=== PATIENT | male | born 1955 | race Caucasian/White ===

== ENCOUNTER 2018-04-29 06:28 | Day surgery (SDC) | payer OTHER ==
[2018-04-28 11:26] VITALS: BMI 27.3
[2018-04-29 07:25] LABS: BASO % 0.7 % (0-2.0); EOS % 1.6 % (0-4.5); HEMOGLOBIN 14.5 GM/dl (11.7-16.9); LYMPH % 35.6 % (8-40); MCH 32.2 pg (25.7-33.7); MCHC 32.9 g/dl (32.0-35.9); MEAN CELL VOLUME 97.9 fl (80-96); MEAN PLT VOLUME 9.1 fl (7.5-11.1); MONO % 10.9 % (3.8-10.2); NEUT % 51.2 % (42.8-82.8); PLATELET COUNT 181 K/MM3 (134-434); RDW 13.3 % (11.9-15.9); WHITE BLOOD COUNT 4.6 K/mm3 (4.0-10.8)
[2018-04-29 07:48] LABS: ALBUMIN 3.9 g/dl (3.5-5.0); ALK PHOS 49 U/L (32-92); ANION GAP 5 MMOL/L (8-16); BILIRUBIN,TOTAL 0.6 mg/dl (0.2-1.0); BLOOD UREA NITROGEN 20 mg/dl (7-18); CHLORIDE 105 mmol/L (98-107); CO2 28 mmol/L (22-28); GLUCOSE,RANDOM 100 mg/dl (74-106); MAGNESIUM 2.1 mg/dL (1.8-2.4); POTASSIUM 4.1 mmol/L (3.5-5.1); SGOT/AST 32 U/L (10-42); SGPT/ALT 32 U/L (10-40); SODIUM 138 mmol/L (136-145); TOT PROT 6.9 g/dl (6.4-8.3)
--- NOTE | 2018-04-29 07:53 | HP ---
CHIEF COMPLAINT: Major Depressive Disorder PCP: [facility] Primary Psychiatrist: Amos Yen Plains HISTORY OF PRESENT ILLNESS: 63 uear-old male with a PMH significant for HLD, BPH, and major depressive disorder. Patient began ECT in 2016. He presents today for ECT. Recent Events: * travel to [place] 2 months ago * no recent illness * no change in medications PAST MEDICAL HISTORY: Hyperlipidemia BPH Major Depressive Disorder PAST SURGICAL HISTORY: None Social History: Smoking: never Alcohol: occasional Drugs: no Allergies No Known Drug Allergies Allergy (Verified 04/29/18 07:13) HOME MEDICATIONS: Home Medications Medication Instructions Recorded Simvastatin 20 mg PO DAILY 04/28/18 Tamsulosin HCl [Flomax] 0.4 mg PO DAILY 04/28/18 Benztropine Mesylate [Cogentin -] 1 mg PO DAILY 04/29/18 Cariprazine HCl [Vraylar] 1.5 mg PO HS 04/29/18 Lamotrigine [Lamictal] 150 mg PO DAILY 04/29/18 REVIEW OF SYSTEMS CONSTITUTIONAL: Absent: fever, chills, diaphoresis, generalized weakness, malaise, loss of appetite, weight change HEENT: Absent: rhinorrhea, nasal congestion, throat pain, throat swelling, difficulty swallowing, mouth swelling, ear pain, eye pain, visual changes CARDIOVASCULAR: Absent: chest pain, syncope, palpitations, irregular heart rate, lightheadedness , peripheral edema RESPIRATORY: Absent: cough, shortness of breath, dyspnea with exertion, orthopnea, wheezing, stridor, hemoptysis GASTROINTESTINAL: Absent: abdominal pain, abdominal distension, nausea, vomiting, diarrhea, constipation, melena, hematochezia GENITOURINARY: Absent: dysuria, frequency, urgency, hesitancy, hematuria, flank pain, genital pain MUSCULOSKELETAL: Absent: myalgia, arthralgia, joint swelling, back pain, neck pain SKIN: Absent: rash, itching, pallor HEMATOLOGIC/IMMUNOLOGIC: Absent: easy bleeding, easy bruising, lymphadenopathy, frequent infections ENDOCRINE: Absent: unexplained weight gain, unexplained weight loss, heat intolerance, cold intolerance NEUROLOGIC: Absent: headache, focal weakness or paresthesias, dizziness, unsteady gait, seizure, mental status changes, bladder or bowel incontinence PHYSICAL EXAMINATION Vital Signs - 24 hr 04/29/18 04/29/18 06:52 07:10 Temperature 97.4 F L 97.4 F L Pulse Rate 55 L 55 L Respiratory 18 18 Rate Blood Pressure 158/83 158/83 O2 Sat by Pulse 100 100 Oximetry (%) GENERAL: Awake, alert, and fully oriented, in no acute distress. HEAD: Normal with no signs of trauma. EYES: Pupils equal, round and reactive to light, sclera anicteric, conjunctiva clear. LUNGS: Breath sounds equal, clear to auscultation bilaterally. No wheezes, and no crackles. No accessory muscle use. HEART: Regular rate and rhythm, normal S1 and S2 ABDOMEN: Soft, nontender, not distended MUSCULOSKELETAL: Normal range of motion at all joints. No bony deformities or tenderness. No CVA tenderness. UPPER EXTREMITIES: 2+ pulses, warm, well-perfused. No cyanosis. No clubbing. No peripheral edema. LOWER EXTREMITIES: 2+ pulses, warm, well-perfused. No calf tenderness. No peripheral edema. NEUROLOGICAL: Cranial nerves II-XII intact. Normal speech. Laboratory Results - last 24 hr 04/29/18 07:00 WBC 4.6 RBC 4.50 Hgb 14.5 Hct 44.0 MCV 97.9 H MCH 32.2 MCHC 32.9 RDW 13.3 Plt Count 181 MPV 9.1 Absolute Neuts (auto) 2.3 Neutrophils % 51.2 Lymphocytes % 35.6 Monocytes % 10.9 H Eosinophils % 1.6 Basophils % 0.7 ASSESSMENT/PLAN: 63 year-old male with a PMH significant for HLD and BPH. Presents today for ECT. Cardiac --no cardiac history --Revised Cardiac Risk Index for Pre-Operative Risk: 0 points, 0.4% risk of major cardiac event Pulmonary --no pulmonary history Neurological --no neurological or neurosurgical history; no history of trauma Anesthesia --no reported problems with anesthesia ECT is a low risk procedure. The relative benefits of the planned procedure outweigh the relative risks for this patient at this time. Visit type - Emergency Visit Emergency Visit: No - New Patient This patient is new to me today: Yes Date on this admission: 04/29/18 - Critical Care Critical Care patient: No
[2018-04-29] MEDS ORDERED: KETAMINE HCL 500 MG/10 ML VIAL ONE (08:13)
[2018-04-29 09:39] VITALS: TEMP 98.2
[2018-04-29 10:13] VITALS: BP 155/85; PULSE 61
--- NOTE | 2018-07-01 20:29 | EKG ---
Test Reason : Blood Pressure : / mmHG Vent. Rate : 055 BPM Atrial Rate : 055 BPM P-R Int : 158 ms QRS Dur : 096 ms QT Int : 424 ms P-R-T Axes : 018 010 017 degrees QTc Int : 405 ms SINUS BRADYCARDIA CANNOT RULE OUT ANTERIOR INFARCT , AGE UNDETERMINED ABNORMAL ECG NO PREVIOUS ECGS AVAILABLE Confirmed by TOMASA DOMINGUEZ MD ([id number]) on 07/01/2018 8:29:06 PM Referred By: Sudhir Vidal Confirmed By:TOMASA DOMINGUEZ MD
== END 2018-04-29 10:05 | disposition home or self-care (01) ==
LOC: FECT 06:28
PROVIDERS: ATTEND Psychiatry & Neurology Psychiatry
PROC: GZB4ZZZ Other Electroconvulsive Therapy (ICD-10-PCS; principal; 2018-04-29 07:45)
DX: F31.9 Bipolar disorder, unspecified (principal)
CPT/HCPCS: 36415; 80053; 83735; 85025; 90870; 93005; 93010; 94760

== ENCOUNTER 2018-05-02 05:51 | Day surgery (SDC) | payer OTHER ==
[2018-04-28 11:28] VITALS: BMI 27.3
[2018-05-02 09:34] VITALS: TEMP 98
[2018-05-02 09:56] VITALS: BP 148/72; PULSE 56
== END 2018-05-02 10:15 | disposition home or self-care (01) ==
LOC: FECT 05:51
PROVIDERS: ATTEND Psychiatry & Neurology Psychiatry
PROC: GZB4ZZZ Other Electroconvulsive Therapy (ICD-10-PCS; principal; 2018-05-02 08:15)
DX: F31.89 Other bipolar disorder (principal)
CPT/HCPCS: 90870; 94760

== ENCOUNTER 2018-05-04 05:39 | Day surgery (SDC) | payer OTHER ==
[2018-04-28 11:49] VITALS: BMI 27.3
[2018-05-04] MEDS ORDERED: ACETAMINOPHEN 325 MG TABLET (FP) PO PRN (07:59)
[2018-05-04] MEDS ORDERED: LACTATED RINGERS SOLUTION 1,000 ML IV SCH (08:00)
[2018-05-04 08:24] VITALS: TEMP 98
[2018-05-04 08:47] VITALS: BP 116/72; PULSE 53
== END 2018-05-04 08:55 | disposition home or self-care (01) ==
LOC: FECT 05:39
PROVIDERS: ATTEND Psychiatry & Neurology Psychiatry
PROC: GZB4ZZZ Other Electroconvulsive Therapy (ICD-10-PCS; principal; 2018-05-04 07:00)
DX: F33.2 Major depressive disorder, recurrent severe without psychotic features (principal)
CPT/HCPCS: 90870; 94760

== ENCOUNTER 2018-05-06 05:42 | Day surgery (SDC) | payer OTHER ==
[2018-04-28 12:07] VITALS: BMI 27.3
[2018-05-06 07:45] VITALS: TEMP 98
[2018-05-06] MEDS ORDERED: ACETAMINOPHEN 325 MG TABLET (FP) PO PRN (08:38)
[2018-05-06] MEDS ORDERED: ONDANSETRON 4 MG/2 ML VIAL IVPUSH PRN (08:38)
[2018-05-06 09:31] VITALS: BP 123/65; PULSE 55
== END 2018-05-06 09:30 | disposition home or self-care (01) ==
LOC: FECT 05:42
PROVIDERS: ATTEND Psychiatry & Neurology Psychiatry
PROC: GZB4ZZZ Other Electroconvulsive Therapy (ICD-10-PCS; principal; 2018-05-06 07:15)
DX: F31.9 Bipolar disorder, unspecified (principal)
CPT/HCPCS: 90870; 94760

== ENCOUNTER 2018-05-09 05:45 | Day surgery (SDC) | payer OTHER ==
[2018-05-09 07:12] VITALS: BMI 27.3
[2018-05-09] MEDS ORDERED: KETAMINE HCL 500 MG/10 ML VIAL ONE (08:06)
[2018-05-09 09:07] VITALS: TEMP 98.1
[2018-05-09 09:33] VITALS: BP 145/78; PULSE 75
== END 2018-05-09 09:40 | disposition home or self-care (01) ==
LOC: FECT 05:45
PROVIDERS: ATTEND Psychiatry & Neurology Psychiatry
PROC: GZB4ZZZ Other Electroconvulsive Therapy (ICD-10-PCS; principal; 2018-05-09 07:15)
DX: F31.32 Bipolar disorder, current episode depressed, moderate (principal)
CPT/HCPCS: 90870; 94760

== ENCOUNTER 2018-05-11 05:44 | Day surgery (SDC) | payer OTHER ==
[2018-05-02 10:43] VITALS: BMI 27.3
[2018-05-11 08:18] VITALS: PULSE 59; TEMP 98
[2018-05-11 08:50] VITALS: BP 137/74
== END 2018-05-11 08:51 | disposition home or self-care (01) ==
LOC: FECT 05:44
PROVIDERS: ATTEND Psychiatry & Neurology Psychiatry
PROC: GZB4ZZZ Other Electroconvulsive Therapy (ICD-10-PCS; principal; 2018-05-11 07:00)
DX: F31.32 Bipolar disorder, current episode depressed, moderate (principal)
CPT/HCPCS: 90870; 94760

== ENCOUNTER 2018-05-13 05:41 | Day surgery (SDC) | payer OTHER ==
[2018-05-02 13:58] VITALS: BMI 27.3
[2018-05-13 09:42] VITALS: TEMP 98.1
[2018-05-13 09:44] VITALS: BP 139/75; PULSE 61
[2018-05-13] MEDS ORDERED: ONDANSETRON 4 MG/2 ML VIAL IVPUSH PRN (14:06)
[2018-05-13] MEDS ORDERED: LACTATED RINGERS SOLUTION 1,000 ML IV SCH (14:15)
== END 2018-05-13 09:30 | disposition home or self-care (01) ==
LOC: FECT 05:41
PROVIDERS: ATTEND Psychiatry & Neurology Psychiatry
PROC: GZB4ZZZ Other Electroconvulsive Therapy (ICD-10-PCS; principal; 2018-05-13 07:00)
DX: F31.32 Bipolar disorder, current episode depressed, moderate (principal)
CPT/HCPCS: 90870; 94760

== ENCOUNTER 2018-05-18 05:44 | Day surgery (SDC) | payer OTHER ==
[2018-05-18 07:18] VITALS: TEMP 98; BMI 27.3
[2018-05-18] MEDS ORDERED: ONDANSETRON 4 MG/2 ML VIAL IVPUSH PRN (07:26)
[2018-05-18] MEDS ORDERED: LACTATED RINGERS SOLUTION 1,000 ML IV SCH (07:30)
[2018-05-18 09:33] VITALS: BP 138/77; PULSE 67
== END 2018-05-18 09:20 | disposition home or self-care (01) ==
LOC: FECT 05:44
PROVIDERS: ATTEND Psychiatry & Neurology Psychiatry
PROC: GZB4ZZZ Other Electroconvulsive Therapy (ICD-10-PCS; principal; 2018-05-18 07:00)
DX: F31.9 Bipolar disorder, unspecified (principal)
CPT/HCPCS: 90870; 94760

== ENCOUNTER 2018-05-23 05:41 | Day surgery (SDC) | payer OTHER ==
[2018-05-11 10:26] VITALS: BMI 27.3
[2018-05-23 09:00] VITALS: TEMP 97.7
[2018-05-23 09:33] VITALS: BP 142/86; PULSE 65
== END 2018-05-23 09:36 | disposition home or self-care (01) ==
LOC: FECT 05:41
PROVIDERS: ATTEND Psychiatry & Neurology Psychiatry
PROC: GZB4ZZZ Other Electroconvulsive Therapy (ICD-10-PCS; principal; 2018-05-23 07:00)
DX: F31.89 Other bipolar disorder (principal)
CPT/HCPCS: 90870; 94760

== ENCOUNTER 2018-05-25 05:41 | Day surgery (SDC) | payer OTHER ==
[2018-05-11 10:31] VITALS: BMI 27.3
[2018-05-25 09:05] VITALS: TEMP 97.9
[2018-05-25 09:06] VITALS: BP 136/76; PULSE 76
== END 2018-05-25 09:10 | disposition home or self-care (01) ==
LOC: FECT 05:41
PROVIDERS: ATTEND Psychiatry & Neurology Psychiatry
PROC: GZB4ZZZ Other Electroconvulsive Therapy (ICD-10-PCS; principal; 2018-05-25 07:00)
DX: F31.9 Bipolar disorder, unspecified (principal)
CPT/HCPCS: 90870; 94760

== ENCOUNTER 2018-06-16 05:50 | Day surgery (SDC) | payer OTHER ==
--- NOTE | 2018-06-16 07:51 | HP ---
CHIEF COMPLAINT: Major Depressive Disorder PCP: [facility] Primary Psychiatrist: Amos Yen [place] HISTORY OF PRESENT ILLNESS: 63 uear-old male with a PMH significant for HLD, BPH, and major depressive disorder. Patient began ECT in 2016. He presents today for ECT. Recent Events: * none reported PAST MEDICAL HISTORY: Hyperlipidemia BPH Major Depressive Disorder PAST SURGICAL HISTORY: None Social History: Smoking: never Alcohol: occasional Drugs: no Allergies No Known Drug Allergies Allergy (Verified 06/16/18 07:16) HOME MEDICATIONS: Home Medications Medication Instructions Recorded Tamsulosin HCl [Flomax] 0.4 mg PO DAILY 04/28/18 Lamotrigine [Lamictal] 150 mg PO DAILY 04/29/18 REVIEW OF SYSTEMS CONSTITUTIONAL: Absent: fever, chills, diaphoresis, generalized weakness, malaise, loss of appetite, weight change HEENT: Absent: rhinorrhea, nasal congestion, throat pain, throat swelling, difficulty swallowing, mouth swelling, ear pain, eye pain, visual changes CARDIOVASCULAR: Absent: chest pain, syncope, palpitations, irregular heart rate, lightheadedness , peripheral edema RESPIRATORY: Absent: cough, shortness of breath, dyspnea with exertion, orthopnea, wheezing, stridor, hemoptysis GASTROINTESTINAL: Absent: abdominal pain, abdominal distension, nausea, vomiting, diarrhea, constipation, melena, hematochezia GENITOURINARY: Absent: dysuria, frequency, urgency, hesitancy, hematuria, flank pain, genital pain MUSCULOSKELETAL: Absent: myalgia, arthralgia, joint swelling, back pain, neck pain SKIN: Absent: rash, itching, pallor HEMATOLOGIC/IMMUNOLOGIC: Absent: easy bleeding, easy bruising, lymphadenopathy, frequent infections ENDOCRINE: Absent: unexplained weight gain, unexplained weight loss, heat intolerance, cold intolerance NEUROLOGIC: Absent: headache, focal weakness or paresthesias, dizziness, unsteady gait, seizure, mental status changes, bladder or bowel incontinence PHYSICAL EXAMINATION Vital Signs - 24 hr 06/16/18 07:20 Temperature 97.1 F L Pulse Rate 60 Respiratory 18 Rate Blood Pressure 154/77 O2 Sat by Pulse 100 Oximetry (%) GENERAL: Awake, alert, and fully oriented, in no acute distress. HEAD: Normal with no signs of trauma. EYES: Pupils equal, round and reactive to light, sclera anicteric, conjunctiva clear. LUNGS: Breath sounds equal, clear to auscultation bilaterally. No wheezes, and no crackles. No accessory muscle use. HEART: Regular rate and rhythm, normal S1 and S2 ABDOMEN: Soft, nontender, not distended MUSCULOSKELETAL: Normal range of motion at all joints. No bony deformities or tenderness. No CVA tenderness. UPPER EXTREMITIES: 2+ pulses, warm, well-perfused. No cyanosis. No clubbing. No peripheral edema. LOWER EXTREMITIES: 2+ pulses, warm, well-perfused. No calf tenderness. No peripheral edema. NEUROLOGICAL: Cranial nerves II-XII intact. Normal speech. ASSESSMENT/PLAN: 63 year-old male with a PMH significant for HLD and BPH. Presents today for ECT. Cardiac --no cardiac history --Revised Cardiac Risk Index for Pre-Operative Risk: 0 points, 0.4% risk of major cardiac event Pulmonary --no pulmonary history Neurological --no neurological or neurosurgical history; no history of trauma Anesthesia --no reported problems with anesthesia ECT is a low risk procedure. The relative benefits of the planned procedure outweigh the relative risks for this patient at this time. Visit type - Emergency Visit Emergency Visit: No - New Patient This patient is new to me today: Yes Date on this admission: 06/16/18 - Critical Care Critical Care patient: No
[2018-06-16 09:40] VITALS: BP 129/71; PULSE 61; TEMP 98.1
== END 2018-06-16 09:30 | disposition home or self-care (01) ==
LOC: FECT 05:50
PROVIDERS: ATTEND Psychiatry & Neurology Psychiatry
PROC: GZB4ZZZ Other Electroconvulsive Therapy (ICD-10-PCS; principal; 2018-06-16 07:15)
DX: F31.89 Other bipolar disorder (principal)
CPT/HCPCS: 90870; 94760